=== PATIENT | female | born 1935 | race Caucasian/White ===

== ENCOUNTER 2017-04-22 14:37 | Emergency (ER) | payer MEDICARE, BC ==
--- NOTE | 2017-04-22 14:44 | EDM.PDOC ---
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 In the interim the patient had a bout of pneumonia and is currently being reevaluated for possible further therapy by the cancer Center. The patient comes up from the cancer center today after undergoing a bone marrow biopsy because she complained to them of hemoptysis which was visualized by the staff there. According to the patient she always has a cough with clear phlegm and for the last 4 days it has looked green and her the last day and a half there has been blood. It is not copious and volume and she has no nasal bleeding or sore throat and has no shortness of breath chest pain abdominal pain and she is not vomiting blood. According to her medical records she has a history of hypertension hypercholesterolemia arrhythmia/A. fib COPD and a long-standing history of tobacco use which she has since stopped. The patient had blood work done as an outpatient and it was noted that her platelet count was 0 yesterday and she received 2 units of platelets last evening in anticipation of this bone marrow biopsy. The staff was concerned about this hemoptysis and thought she needed evaluation. Her vital signs have always been able. Her platelet count today after the transfusion last evening was 57,000. Patient is currently on a schedule getting 2 units of packed red cells every Tuesday. The patient states that she is eating and drinking normally and having normal bowel movements without blood and normal urine output. She denies any sense of fever. She currently is having some slight discomfort at her right hip area where she underwent a bone marrow biopsy earlier today but otherwise she does not feel weak dizzy lightheaded and has no complaints of any pain here in the ED. Review of systems: As per history of present illness and below otherwise all systems reviewed and negative. Past medical history: As per history of present illness and as reviewed below otherwise noncontributory. Surgical history: As per history of present illness and as reviewed below otherwise noncontributory. Social history: No reported history of drug or alcohol abuse. Family history: As per history of present illness and as reviewed below otherwise noncontributory. Physical exam: Gen.: Well-developed well-nourished female who is nontoxic and speaking clearly and easily in the ED. She is not breathless and vital signs have been reviewed by me. HEENT: Atraumatic, normocephalic, pupils reactive, negative for conjunctival pallor or scleral icterus, mucous membranes moist, throat clear, there is no evidence of any oropharyngeal bleeding, nasal turbinates have some bogginess and some excoriated mucosa on the left but there is no evidence of any overt bleeding for areas of old bleeding, neck supple, nontender, trachea midline. Lungs: Clear to auscultation there is no wheezing or stridor and no worker breathing, breath sounds equal bilaterally, chest nontender. Heart: S1S2, regular in in rate but irregular rhythm no overt murmurs Abdomen: Soft, nondistended, nontender. Negative for masses or hepatosplenomegaly. NABS. There is tympany on percussion in the upper abdomen without discomfort and there is no rebound or guarding. The abdomen is very globular Pelvis: Stable nontender. Genitourinary: Deferred. Rectal: Deferred. Extremities: Atraumatic, negative for cords or calf pain. Neurovascular unremarkable. Neuro: Awake, alert, oriented. Cranial nerves II through XII unremarkable. Motor and sensory unremarkable throughout. Exam nonfocal. Skin: Normal turgor no evidence of any rashes or lesions and no overt pallor is noted Diagnostics: Patient had a CBC and the clinic which I have reviewed with a WBC count of 2.91 , hemoglobin of 8, platelet count of 57. I have reviewed her hemoglobins in the past and they range anywhere from 7.8-8.5. We have ordered CMP EKG INR and CT scan of the chest here in the ED Therapeutics: None Please note that I did see the patient's "phlegm" that she is coughing up and it is pinkish red in color and seems to be in a base of clear phlegm not green appearing. I will continue to monitor this Patient states that should she has been here in the ER she has had the one episode of "phlegm" with the blood that I saw and one subsequent episode but no more. She says it has tapered off and there is no green phlegm. She currently states she has no chest pain and no shortness of breath and is awaiting to go to CT. 175: Testing results were discussed with the oncologist on-call for [facility], Dr. Jang, as well as with the patient. In light of these new findings the patient will likely need pulmonology consult and a biopsy of this mass to determine the etiology. The patient is very stable here hemodynamically and has not had copious sputum or bleeding with coughing while in the ER and wants to go home for the weekend and Dr. Jang and I both agree that she does not need admission or emergent transfer for this to be performed and it can be accomplished through the cancer Center next week. The patient has a scheduled blood draw for CBC with platelets on Tuesday and she will get those results the following day for potential blood transfusion or platelet transfusion and at that time I told her to discuss the CAT scan with the [facility] to get the referrals she needs for the next level of care. I advised the patient on reasons to return to the ER and for any clinical changes over the weekend that she is concerned with. She is comfortable with this care plan Impression: Hemoptysis, history of MDS, new lung mass Definitive disposition and diagnosis as appropriate pending reevaluation and review of above. - Related Data Allergies Allergy/AdvReac Type Severity Reaction Status Date / Time codeine Allergy Shortness Verified 02/06/16 19:15 of Breath Home Meds: Home Meds Budesonide/Formoterol Fumarate [Symbicort 160-4.5 Mcg Inhaler] 1 puff IH BID 11/22 [History] Calcium Carb/Vitamin D2/Soyb [Calcium 600 with Soy] 1 each PO DAILY 08/11/16 [ History] Cyanocobalamin (Vitamin B-12) [Vitamin B-12] 1 tab PO DAILY 08/11/16 [History] Diltiazem [Cardizem CD] 240 mg PO DAILY 08/11/16 [History] Furosemide [Lasix] 40 mg PO DAILY 08/11/16 [History] Isosorbide Mononitrate [Imdur] 60 mg PO BID 08/11/16 [History] Lisinopril 10 mg PO DAILY 08/11/16 [History] Metoprolol Succinate [Toprol XL] 25 mg PO DAILY 08/11/16 [History] Multivitamin [Multivitamins] 1 tab PO DAILY 08/11/16 [History] Simvastatin [Zocor] 20 mg PO BEDTIME 08/11/16 [History] Tiotropium [Spiriva HandiHaler] 18 mcg INH DAILY 08/11/16 [History] Past Medical History HEENT History: Reports: Cataract Cardiovascular History: Reports: Afib, Heart Failure, High Cholesterol, Hypertension, [place] Respiratory History: Reports: COPD, Pneumonia, Recurrent Genitourinary History: Reports: None Musculoskeletal History: Reports: None Other Musculoskeletal History: broken knees and arms Neurological History: Reports: CVA Psychiatric History: Reports: None Endocrine/Metabolic History: Reports: None Hematologic History: Reports: Anemia, Blood Transfusion(s) Immunologic History: Reports: None Oncologic (Cancer) History: Reports: Other (See Below) Other Oncologic History: myodysplastic disease - Infectious Disease History Infectious Disease History: Reports: Chicken Pox, Influenza, Measles, Mumps, Pertussis (Whooping Cough) - Past Surgical History HEENT Surgical History: Reports: Cataract Surgery GI Surgical History: Reports: Hernia, Abdominal Social & Family History - Family History Family Medical History: Noncontributory - Tobacco Use Smoking Status *Q: Former Smoker Second Hand Smoke Exposure: No - Caffeine Use Caffeine Use: Reports: Coffee Caffeine Use Comment: "a lot" per pt - Recreational Drug Use Recreational Drug Use: No ED ROS GENERAL - Review of Systems Review Of Systems: ROS reveals no pertinent complaints other than HPI. ED EXAM, GENERAL - Physical Exam Exam: See Below (See dictation) Course - Vital Signs Last Recorded V/S: Last Vital Signs Temp 36.2 C 04/22/17 14:54 Pulse 81 04/22/17 18:05 Resp 18 04/22/17 18:05 BP 139/57 L 04/22/17 18:05 Pulse Ox 97 04/22/17 18:05 - Orders/Labs/Meds Orders: Active Orders 24 hr Category Date Time Status Cardiac Monitoring [RC] . DIRECTED Care 04/22/17 14:52 Active EKG Documentation Completion [RC] STAT Care 04/22/17 14:52 Active Oxygen Therapy, ED [RC] ASDIRECTED Care 04/22/17 14:52 Active Pulse Oximetry [RC] ASDIRECTED Care 04/22/17 14:52 Active Chest w Cont [CT] Stat Exams 04/22/17 14:53 Taken Sodium Chloride 0.9% [Saline Flush] Med 04/22/17 14:52 Active 10 ml FLUSH ASDIRECTED PRN Sodium Chloride 0.9% [Saline Flush] Med 04/22/17 14:52 Active 2.5 ml FLUSH ASDIRECTED PRN Saline Lock Insert [OM.PC] Stat Oth 04/22/17 14:52 Ordered Medication Orders Sodium Chloride (Saline Flush) 10 ml FLUSH ASDIRECTED PRN PRN Reason: Keep Vein Open Sodium Chloride (Saline Flush) 2.5 ml FLUSH ASDIRECTED PRN PRN Reason: Keep Vein Open Labs: Laboratory Tests 04/22/17 04/22/17 Range/Units 13:05 13:05 INR 1.15 H (0.86-1.11) Sodium 130 L (136-146) mmol/L Potassium 3.9 (3.5-5.1) mmol/L Chloride 95 L (98-110) mmol/L Carbon Dioxide 27 (21-31) mmol/L BUN 16 (6.0-23.0) mg/dL Creatinine 0.7 (0.6-1.5) mg/dL Est Cr Clr Drug Dosing TNP Estimated GFR (MDRD) > 60.0 ml/min Glucose 107 (60-110) mg/dL Calcium 9.1 (8.8-10.8) mg/dL Total Bilirubin 0.7 (0.1-1.5) mg/dL AST 29 (5-40) IU/L ALT 33 (8-54) IU/L Alkaline Phosphatase 68 (40-150) Total Protein 6.8 (6.0-8.0) g/dL Albumin 3.8 (3.4-4.8) g/dL Globulin 3.0 (2.0-3.5) g/dL Albumin/Globulin Ratio 1.3 (1.3-2.8) Meds: Medications Generic Name Dose Route Start Last Admin Trade Name Freq PRN Reason Stop Dose Admin Sodium Chloride 10 ml 04/22/17 14:52 Saline Flush FLUSH ASDIRECTED PRN Keep Vein Open Sodium Chloride 2.5 ml 04/22/17 14:52 Saline Flush FLUSH ASDIRECTED PRN Keep Vein Open Discontinued Medications Generic Name Dose Route Start Last Admin Trade Name Freq PRN Reason Stop Dose Admin Iopamidol 75 ml 04/22/17 16:54 04/22/17 16:54 Isovue Multipack-370 (76%) IVPUSH 04/22/17 16:55 75 ml ONETIME STA Administration Departure - Departure Time of Disposition: 18:16 Disposition: Home, Self-Care 01 Condition: Good Clinical Impression: Hemoptysis, unspecified, Mass of lung - Discharge Information Referrals: PCP,Unknown [Primary Care Provider] - Additional Instructions: The following information is given to patients seen in the emergency department who are being discharged to home. This information is to outline your options for follow-up care. We provide all patients seen in our emergency department with a follow-up referral. The need for follow-up, as well as the timing and circumstances, are variable depending upon the specifics of your emergency department visit. If you don't have a primary care physician on staff, we will provide you with a referral. We always advise you to contact your personal physician following an emergency department visit to inform them of the circumstance of the visit and for follow-up with them and/or the need for any referrals to a consulting specialist. The emergency department will also refer you to a specialist when appropriate. This referral assures that you have the opportunity for followup care with a specialist. All of these measure are taken in an effort to provide you with optimal care, which includes your followup. Under all circumstances we always encourage you to contact your private physician who remains a resource for coordinating your care. When calling for followup care, please make the office aware that this follow-up is from your recent emergency room visit. If for any reason you are refused follow-up, please contact the [facility] emergency department at and ask to speak to the emergency department charge nurse. [facility] Primary care- Internal Medicine and Family [address] [address] Please monitor your symptoms and return to ER as needed and as discussed over the weekend. Please do your normal routine of blood drawn Tuesday and follow up in the cancer center and at that time please discuss with them referrals for further care and management of new lung mass. Continue all prescribed medications as before rest and hydrate - My Orders Last 24 Hours: My Active Orders 04/22/17 14:52 Cardiac Monitoring [RC] . DIRECTED EKG Documentation Completion [RC] STAT Oxygen Therapy, ED [RC] ASDIRECTED Pulse Oximetry [RC] ASDIRECTED Sodium Chloride 0.9% [Saline Flush] 10 ml FLUSH ASDIRECTED PRN Sodium Chloride 0.9% [Saline Flush] 2.5 ml FLUSH ASDIRECTED PRN Saline Lock Insert [OM.PC] Stat 04/22/17 14:53 Chest w Cont [CT] Stat - Assessment/Plan Last 24 Hours: My Active Orders 04/22/17 14:52 Cardiac Monitoring [RC] . DIRECTED EKG Documentation Completion [RC] STAT Oxygen Therapy, ED [RC] ASDIRECTED Pulse Oximetry [RC] ASDIRECTED Sodium Chloride 0.9% [Saline Flush] 10 ml FLUSH ASDIRECTED PRN Sodium Chloride 0.9% [Saline Flush] 2.5 ml FLUSH ASDIRECTED PRN Saline Lock Insert [OM.PC] Stat 04/22/17 14:53 Chest w Cont [CT] Stat
[2017-04-22] MEDS ORDERED: Sodium Chloride 0.9% 10 ML Syringe FLUSH PRN (14:52)
[2017-04-22] MEDS ORDERED: Sodium Chloride 0.9% 2.5 ML Syringe FLUSH PRN (14:52)
[2017-04-22 15:35] LABS: CHLORIDE,CL 95 mmol/L (98-110); SODIUM,NA 130 mmol/L (136-146)
[2017-04-22] MEDS ORDERED: Iopamidol 755 MG/ML 500 ML Multipack Bottle IVPUSH STA (16:54)
[2017-04-22 18:06] VITALS: BP 139/57
--- NOTE | 2017-04-25 09:43 | CT ---
EXAM DATE: 04/22/17 PATIENT'S AGE: 82 Patient: EDDY KITCHEN Facility: [place], [place] Site . Site : [id number] Study: CT Chest [id number]/15/2017 5:04:50 PM Ordering Physician: Zoie Kothari Final Report: INDICATION: Hemoptysis. CT CHEST WITH CONTRAST TECHNIQUE: Multidetector CT imaging was performed through the chest following intravenous contrast administration using 75 mL Isovue 370. Coronal and sagittal reconstructions were generated. COMPARISON: None. FINDINGS: Lungs and airways: Moderate centrilobular pulmonary emphysema. Poorly defined masslike density in the posteromedial left lower lobe (image 51 of series 201 and image 66 of series 204) measuring roughly 6.5 x 3 x 3.5 centimeters, suspicious for lung malignancy. Infiltrate extends from this density throughout the left lower lobe. Several small patchy or nodular densities in the upper lobes bilaterally are present, most numerous on the right. Pleura and pleural spaces: Trace left pleural effusion. Heart and mediastinum: Mild to moderate cardiomegaly. Mild pericardial effusion. Multiple mildly enlarged mediastinal lymph nodes in the right paratracheal, precarinal, subcarinal, and AP window regions. The largest node is a subcarinal lesion measuring 3.2 x 1.7 x 3.8 centimeters. Mildly enlarged left hilar nodes are also noted. Vascular structures: Normal caliber thoracic aorta with moderate atherosclerotic calcification. Coronary artery calcifications are also noted. Chest wall and axillae: No mass or axillary lymphadenopathy. Osseous structures: Mild spinal degenerative changes. Bilateral shoulder DJD. Upper abdomen: A few indeterminate small hypodensities in the liver, the largest in the right hepatic lobe on image 96 of series 201 measuring 1 centimeter in size, not well characterized. IMPRESSION: 1. Poorly defined 6.5 x 3 x 3.5 centimeter mass like density in the left lower lobe, suspicious for lung malignancy. [employer] consultation recommended. 2. Mild mediastinal and left hilar lymphadenopathy as noted above, possibly reflecting metastatic adenopathy. 3. Several small patchy or nodular densities in the upper lobes bilaterally. Lung metastases are possible. 4. A few small indeterminate liver hypodensities are noted. Liver metastases are not excluded. 5. Mild to moderate cardiomegaly and mild pericardial effusion. 6. Moderate centrilobular pulmonary emphysema. 7. Atherosclerosis. SILVANA KHAN MD [employer] Dictated by Phoenix Khan MD @ 04/22/2017 5:39:27 PM Dictated by: Phoenix Khan MD @ 04/22/2017 17:39:51 (Electronic Signature) Report Signed by Proxy. [facility]
== END 2017-04-22 18:45 | disposition home or self-care (01) ==
LOC: MW.ED 14:37
DX: R04.2 Hemoptysis (principal); R91.8 Other nonspecific abnormal finding of lung field; I11.0 Hypertensive heart disease with heart failure; I50.9 Heart failure, unspecified; I48.91 Unspecified atrial fibrillation; E78.00 Pure hypercholesterolemia, unspecified; I25.2 Old myocardial infarction; J44.9 Chronic obstructive pulmonary disease, unspecified; D46.9 Myelodysplastic syndrome, unspecified; Z88.5 Allergy status to narcotic agent; Z79.899 Other long term (current) drug therapy; Z86.2 Personal history of diseases of the blood and blood-forming organs and certain disorders involving the immune mechanism; Z98.49 Cataract extraction status, unspecified eye; Z87.891 Personal history of nicotine dependence; Z86.73 Personal history of transient ischemic attack (TIA), and cerebral infarction without residual deficits
CPT/HCPCS: 36415; 71260; 80053; 85610; 93005; 99284; Q9967